=== PATIENT | male | born 1985 | race Caucasian/White ===

== ENCOUNTER 2020-09-10 09:58 | Outpatient (CLI) | payer BC, SELFPAY ==
--- NOTE | ~2020-09-10 | NM_ITS ---
EXAMINATION: NM hepatobiliary w pharm DATE: 09/10/2020 13:12 INDICATION: Right upper quadrant abdominal pain. Nausea. COMPARISON: None. TECHNIQUE: 4.7 mCi Tc-99m mebrofenin (Choletec) was administered intravenously. Scintigraphic images of the abdomen were obtained for one hour. Then, 1.7 mcg sincalide (Kinevac) IV was administered, an d imaging was continued for 30 minutes. FINDINGS: There is normal clearance of radiotracer from the blood pool. There is homogeneous tracer u ptake by the liver. Activity progresses to the bowel and gallbladder. Gallbladder ejection fraction (GBEF) was 85%. Note that most patients with gallbladder dysfunction have GBEF < 35%, which overlaps with the broad normal range of 10-90%. IMPRESSION: 1. Normal hepatobiliary scintigraphy. Reviewed, dictated and finalized at location B. INSULATOR
== END 2020-09-10 09:59 | disposition home or self-care (01) ==
PROVIDERS: PCP Student in an Organized Health Care Education/Training Program; Visit Provider Internal Medicine Gastroenterology
DX: R10.11 Right upper quadrant pain (principal); R11.0 Nausea
CPT/HCPCS: 78227; A9537; J2805

== ENCOUNTER 2022-10-22 10:24 | Emergency (ER) | payer BC, SELFPAY ==
[2022-10-22 10:57] VITALS: BP 139/75; PULSE 62; RESP 18; TEMP 36.7; O2SAT 100
[2022-10-22 10:58] VITALS: BP 139/75; PULSE 62; RESP 18; TEMP 36.7; O2SAT 100
--- NOTE | 2022-10-22 11:10 | ED.MALEGU ---
HPI - Male Genitourinary General Chief complaint: Skin/Abscess/Foreign Body Stated complaint: rash in groin Time Seen by Provider: 10/22/22 11:12 Source: patient and RN notes reviewed Mode of arrival: ambulatory Limitations: no limitations History of Present Illness HPI Narrative: 37 y/o male presented for c/o 'warts' on his groin and penis For 2 weeks. Endorses one lesions is 'irritating' to the shaft. Denies significant pain, drainage, or itching. denies changes to lotion, soap, detergent, or other products. He denies changes in sexual partners. Denies urinary symptoms or concern for STD, denies history of HSV or HPV. Related Data Allergies Allergy/AdvReac Type Severity Reaction Status Date / Time No Known Allergies Allergy Verified 10/22/22 10:58 Review of Systems Review of Systems: CONSTITUTIONAL: Denies body aches, fever, chills, or sweats. CARDIOVASCULAR: Denies chest pain, palpitations, or edema. RESPIRATORY: Denies cough or dyspnea. GASTROINTESTINAL: Denies abdominal pain, nausea, vomiting, or diarrhea. GENITOURINARY: denies dysuria, frequency, urgency, hematuria, flank pain SKIN: Denies rash, itching, or wounds. MUSCULOSKELETAL: Denies back pain or myalgia. PMFSH Comments At time of signature, I have reviewed and agree with nursing past medical, surgical, social and family history unless otherwise noted. Please see nursing chart for further information. There is no relevant family history pertinent to the presenting complaint Exam Narrative: GENERAL: Well-appearing and in no acute distress. HEAD: Normocephalic EYES: EOMI. . ENT: Mucous membranes pink and moist. NECK: Normal AROM. Supple. CHEST: Clear to auscultation. HEART: Regular rate and rhythm. ABDOMEN: Soft, nontender, nondistended, normal active bowel sounds. No CVA tenderness : few scattered pustules noted to suprapubic area, one pustule to left penile shaft, nontender, no vesicular appearance or active drainage, no apparent warts noted. c/w folliculitis. Course Course Emergency Course: Patient is aware of diagnosis, understands and agrees to treatment plan. Anticipatory guidance given. Patient agrees to follow-up as directed and is aware of reasons to seek care at the emergency department. Portions of this record may have been created with voice recognition software Level of Care: Express Care Visit Vital Signs Vital signs: Vital Signs Temperature 98.1 F 10/22/22 10:57 Pulse Rate 62 10/22/22 10:57 Respiratory Rate 18 10/22/22 10:57 Blood Pressure 139/75 10/22/22 10:57 Pulse Oximetry 100 10/22/22 10:57 Oxygen Delivery Room Air 10/22/22 10:57 Temperature 98.1 F 10/22/22 10:58 Pulse Rate 62 10/22/22 10:58 Respiratory Rate 18 10/22/22 10:58 Blood Pressure 139/75 10/22/22 10:58 Pulse Oximetry 100 10/22/22 10:58 Oxygen Delivery Room Air 10/22/22 10:58 Reviewed MDM - Male Genitourinary MDM Narrative Medical decision making narrative: based on PE will treat for folliculitis. Provided education, pt will monitor. Recommend close follow-up with PCP. Verbalizes understanding. Advised supportive measures and signs/symptoms to go to the ER. Pt is appropriate for outpt treatment and f/u. Differential Diagnosis Differential diagnosis: Likely urinary tract infection, urethritis and genital herpes simplex Discharge Plan Discharge Clinical Impression: Folliculitis Patient Disposition: Home, Self-Care Condition: Stable Instructions: Folliculitis (ED) Additional Instructions: Keep areas clean and dry. Monitor the sites for worsening symptoms. use the cream as prescribed Recommend close follow-up with your primary care provider. Call to schedule appointment. Go to the ER for any worsening symptoms or concerns Prescriptions: New mupirocin 2 % ointment 1 applic topical TID 7 Days Qty: 22 0RF Follow-up/Referrals: James,DO [facility] [[facility]
== END 2022-10-22 11:43 | disposition home or self-care (01) ==
PROVIDERS: Emergency Provider Nurse Practitioner Family; PCP Student in an Organized Health Care Education/Training Program
DX: L73.9 Follicular disorder, unspecified (principal)
CPT/HCPCS: 99213; G0463